=== PATIENT | male | born 1970 | race Caucasian/White ===

== ENCOUNTER 2019-09-18 13:30 | Emergency (ER) | payer SELFPAY ==
--- NOTE | 2019-09-18 15:13 | ER ---
Nurse's Notes [facility] Name: Ty Panda Age: 49 yrs Sex: Male : 1970 Arrival Date: 09/18/2019 Time: 13:31 Bed 15 Private MD: Diagnosis: Person with feared health complaint in whom no diagnosis is made Presentation: 09/17 13:54 Chief complaint: Patient states: BP is high for a while now, it goes up and down.I ca1 can't remember what exactly but they're both in the 100s, the upper and lower. And my job wants to get a doctor's note about the BP. I don't have High BP and am not taking any medications. Coronavirus screen: Proceed with normal triage. Patient denies a cough. Patient denies shortness of breath or difficulty breathing. Patient denies measured and/or subjective temperature greater than 100.4F prior to today's visit. Patient denies travel on a cruise ship or to a country the [facility] currently lists as an affected area. Patient denies contact with known and/or suspected case of COVID-19. Ebola Screen: Patient negative for fever greater than or equal to 101.5 degrees Fahrenheit, and additional compatible Ebola Virus Disease symptoms Patient denies exposure to infectious person. Patient denies travel to an Ebola-affected area in the 21 days before illness onset. No symptoms or risks identified at this time. Initial Sepsis Screen: Does the patient meet any 2 criteria? No. Patient's initial sepsis screen is negative. Does the patient have a suspected source of infection? No. Patient's initial sepsis screen is negative. Risk Assessment: Do you want to hurt yourself or someone else? Patient reports no desire to harm self or others. Onset of symptoms was September 18, 2019. 13:54 Method Of Arrival: Ambulatory ca1 13:54 Acuity: NATALY 3 ca1 Historical: - Allergies: 13:58 No Known Allergies; ca1 - Home Meds: 13:58 none [Active]; ca1 - PMHx: 13:58 None; ca1 - PSHx: 13:58 Appendectomy; ca1 - Immunization history:: Adult Immunizations up to date, Flu vaccine is up to date. - Social history:: Smoking status: Patient reports the use of cigarette tobacco products, denies chronic smoking, but will smoke occasionally. Screenin:30 Abuse screen: Denies threats or abuse. Nutritional screening: No deficits noted. em Tuberculosis screening: No symptoms or risk factors identified. Fall Risk None identified. Assessment: 14:40 General: Appears in no apparent distress. comfortable, well groomed, well developed, em well nourished, Behavior is calm, cooperative, appropriate for age, Denies fever. Pain: Denies pain. Neuro: Level of Consciousness is awake, alert, obeys commands, Oriented to person, place, time, situation, Appropriate for age Denies weakness headache. Cardiovascular: Denies chest pain, shortness of breath, Capillary refill < 3 seconds Patient's skin is warm and dry. Respiratory: Airway is patent Respiratory effort is even, unlabored, Respiratory pattern is regular, symmetrical. GI: Patient currently denies nausea, vomiting. Derm: Skin is intact, is healthy with good turgor, Skin is pink, warm \T\ dry. Musculoskeletal: Capillary refill < 3 seconds, Range of motion: intact in all extremities. Vital Signs: 13:54 BP 119 / 87; Pulse 88; Resp 18 S; Temp 98(O); Pulse Ox 100% on R/A; Weight 79.38 kg ca1 (R); Height 5 ft. 9 in. (175.26 cm) (R); Pain 0/10; 14:58 BP 127 / 87; Pulse 78; Resp 18; Pulse Ox 99% on R/A; Pain 0/10; em 13:54 Body Mass Index 25.84 (79.38 kg, 175.26 cm) ca1 ED Course: 13:31 Patient arrived in ED. ag5 13:57 Triage completed. ca1 13:58 Arm band placed on right wrist. ca1 14:00 Mychal Singh FNP-C is [facility]. la1 14:00 Marcelino Mcelroy MD is Attending Physician. la1 14:18 Sadi Maria, JOSE L is Primary Nurse. em 14:40 Patient has correct armband on for positive identification. Bed in low position. Call em light in reach. Adult w/ patient. Pulse ox on. NIBP on. 15:28 No provider procedures requiring assistance completed. Patient did not have IV access em during this emergency room visit. Administered Medications: No medications were administered Outcome: 15:12 Discharge ordered by . la1 15:28 Discharged to home ambulatory. em 15:28 Condition: good 15:28 Discharge instructions given to patient, Instructed on discharge instructions, follow up and referral plans. Demonstrated understanding of instructions, follow-up care. 15:29 Patient left the ED. em Signatures: Sadi Maria, RN RN em Mychal Singh, REINFORCED CONCRETE INSPECTOR-C REINFORCED CONCRETE INSPECTOR-Cla1 Beverly Valiente RN RN [facility] Christine Dong ag5
--- NOTE | 2019-09-18 15:13 | EDPHYS ---
Physician Documentation [facility] Name: Ty Panda Age: 49 yrs Sex: Male : 1970 Arrival Date: 09/18/2019 Time: 13:31 Bed 15 Private MD: ED Physician Marcelino Mcelroy HPI: 09/17 15:13 This 49 yrs old Male presents to ER via Ambulatory with complaints of High la1 Blood Pressure, Medical Clearance. 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 Onset: The symptoms/episode began/occurred last week. Modifying factors:. Severity of symptoms: At its worst the blood pressure was moderate. The patient has not experienced similar symptoms in the past. pt reports sometimes when he checks his BP it is high and work wanted him to be evaluated. Denies any symptoms. Historical: - Allergies: 13:58 No Known Allergies; ca1 - Home Meds: 13:58 none [Active]; ca1 - PMHx: 13:58 None; ca1 - PSHx: 13:58 Appendectomy; ca1 - Immunization history:: Adult Immunizations up to date, Flu vaccine is up to date. - Social history:: Smoking status: Patient reports the use of cigarette tobacco products, denies chronic smoking, but will smoke occasionally. ROS: 15:14 Constitutional: Negative for fever, chills, and weight loss, ENT: Negative for injury, la1 pain, and discharge, Cardiovascular: Negative for chest pain, palpitations, and edema, Respiratory: Negative for shortness of breath, cough, wheezing, and pleuritic chest pain, Abdomen/GI: Negative for abdominal pain, nausea, vomiting, diarrhea, and constipation, Back: Negative for injury and pain, Skin: Negative for injury, rash, and discoloration, Neuro: Negative for headache, weakness, numbness, tingling, and seizure. Exam: 15:14 Constitutional: This is a well developed, well nourished patient who is awake, alert, la1 and in no acute distress. Head/Face: Normocephalic, atraumatic. Chest/axilla: Normal chest wall appearance and motion. Nontender with no deformity. No lesions are appreciated. Cardiovascular: Regular rate and rhythm with a normal S1 and S2. Respiratory: Lungs have equal breath sounds bilaterally, clear to auscultation Abdomen/GI: Soft, non-tender, with normal bowel sounds. Back: No spinal tenderness. No costovertebral tenderness. Full range of motion. Skin: Warm, dry with normal turgor. Normal color with no rashes, no lesions, and no evidence of cellulitis. Neuro: Awake and alert, GCS 15, oriented to person, place, time, and situation. Vital Signs: 13:54 BP 119 / 87; Pulse 88; Resp 18 S; Temp 98(O); Pulse Ox 100% on R/A; Weight 79.38 kg ca1 (R); Height 5 ft. 9 in. (175.26 cm) (R); Pain 0/10; 14:58 BP 127 / 87; Pulse 78; Resp 18; Pulse Ox 99% on R/A; Pain 0/10; em 13:54 Body Mass Index 25.84 (79.38 kg, 175.26 cm) ca1 MDM: 14:03 Patient medically screened. la1 15:11 Data reviewed: vital signs, nurses notes. la1 15:14 Counseling: I had a detailed discussion with the patient and/or guardian regarding: the la1 historical points, exam findings, and any diagnostic results supporting the discharge/admit diagnosis, the need for outpatient follow up, a family practitioner, to return to the emergency department if symptoms worsen or persist or if there are any questions or concerns that arise at home. ED course: instructed pt to keep track of his blood pressure closely and follow up with PCP, return precautions given. Administered Medications: No medications were administered Disposition: 15:39 Co-signature as Attending Physician, Marcelino Mcelroy MD. kdr Disposition: 09/18/19 15:12 Discharged to Home. Impression: Person with feared health complaint in whom no diagnosis is made. - Condition is Stable. - Discharge Instructions: Hypertension, How to Take Your Blood Pressure, [id number], Form - Blood Pressure Record Sheet. - Work release form, Medication Reconciliation Form, Thank You Letter form. - Follow up: Private Physician; When: 2 - 3 days; Reason: Recheck today's complaints, Re-evaluation by your physician. - Problem is new. - Symptoms have improved. Signatures: Marcelino Mcelroy MD MD kdr Munoz, Edgar, RN RN em Mychal Singh FNP-C [id number] Beverly Valiente RN RN ca1 Corrections: (The following items were deleted from the chart) 15:29 15:12 09/18/2019 15:12 Discharged to Home. Impression: Person with feared health em complaint in whom no diagnosis is made. Condition is Stable. Forms are Medication Reconciliation Form, Thank You Letter, Antibiotic Education, Prescription Opioid Use. Follow up: Private Physician; When: 2 - 3 days; Reason: Recheck today's complaints, Re-evaluation by your physician. Problem is new. Symptoms have improved. la1
[2019-09-18 15:36] VITALS: TEMP 98
[2019-09-18 15:37] VITALS: BP 127/87; O2SAT 99
== END 2019-09-18 15:29 | disposition home or self-care (01) ==
LOC: ER 13:30
DX: Z71.1 Person with feared health complaint in whom no diagnosis is made (principal); Z72.0 Tobacco use
CPT/HCPCS: 99283

== ENCOUNTER 2021-11-05 18:11 | Emergency (ER) | payer SELFPAY ==
--- OUTSIDE RECORDS SUMMARY | 2021-11-05 18:14 | XMS REPORT | Continuity of Care Document ---
:1970 Author Organization [facility] t Address [address] [place] [address] [address] [place] [address] Care Team Providers Name Role Phone Unavailable Unavailable Unavailable Payers Payer Name Policy Type Policy Number Effective Date Expiration Date S heather [employer] [id number] 2017 HEALTH 00:00:00 Problems This patient has no known problems. Allergies, Adverse Reactions, Alerts Allergy Allergy Status Severity Reaction(s) Onset Inactive Treating Comm ents Source Name Type Date Date Clinician CODEINE DRUG Active Dizziness Univer s INGREDI 9-11 ity of 00:00: [address] Medications This patient has no known medications. Procedures This patient has no known procedures. Encounters Start End Encounter Admission Attending Care Care Encounter Source Date/Time Date/Time Type Type Clinicians Facility Department ID 2021-04-01 Emergency [facility] [id number] [facility] 13:13:48 ity [facility] 2021-04-01 Emergency [facility] [id number] [facility] 00:36:40 [facility] Results This patient has no known results.
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
[2021-11-05 20:39] VITALS: BP 146/105; TEMP 97.8; O2SAT 97
== END 2021-11-05 20:13 | disposition home or self-care (01) ==
LOC: ER 18:11
DX: S02.32XA Fracture of orbital floor, left side, initial encounter for closed fracture (principal); Y04.2XXA Assault by strike against or bumped into by another person, initial encounter; Y93.9 Activity, unspecified; Y92.9 Unspecified place or not applicable; F17.210 Nicotine dependence, cigarettes, uncomplicated
CPT/HCPCS: 70450; 70486; 76377; 99283